=== PATIENT | female | born 1995 | race Caucasian/White ===

== ENCOUNTER 2023-03-16 17:16 | Inpatient (IN) | payer BC ==
[2023-03-16 18:32] LABS: Hematocrit 34.6 % (34.9-44.5); Hemoglobin 11.6 g/dL (12.0-15.5); Mean Corpuscular HGB CONC 33.5 g/dL (32.0-36.0); Mean Corpuscular Hemoglobin 31.2 pg (27.0-33.0); Mean Platelet Volume 12.2 fl (7.4-10.4); Platelet Count 220 10x3/uL (150-450); RBC Distribution Width 13.4 % (11.5-14.5); Red Blood Cell (RBC) Count 3.72 10x6/uL (3.90-5.03); White Blood Cell (WBC) Count 13.5 10x3/uL (3.5-10.5)
[2023-03-16] MEDS ORDERED: fentaNYL/Ropivacaine Epidural 100 ML ONE (19:04)
[2023-03-16 19:07] LABS: Syphilis Antibody Nonreactive (Nonreactive); Syphilis Antibody Index 0.06 S/CO (<1.00 Non-Reactive)
[2023-03-16 19:08] LABS: HBSAg Index 0.17 S/CO (0-0.99); Hep B Surf Ag - L&D Non-Reactive S/CO (NonReactive)
[2023-03-16 19:09] VITALS: BMI 34.0
[2023-03-16] MEDS ORDERED: Carboprost 250 MCG/ML AMP IM PRN (21:45)
[2023-03-16] MEDS ORDERED: Lactated Ringer's 1,000 ML IV SCH (21:45)
[2023-03-16] MEDS ORDERED: Misoprostol 200 MCG TAB RC PRN (21:45)
[2023-03-16] MEDS ORDERED: Ondansetron PF 4 MG/2 ML Vial IVP PRN (21:45)
[2023-03-16] MEDS ORDERED: Acetaminophen 500 MG TAB PO PRN (21:45)
[2023-03-16] MEDS ORDERED: Oxytocin 30 units/NS 500 ML 500 ML IV SCH (21:45)
[2023-03-16] MEDS ORDERED: Lidocaine 1% (PF) 30 ML VIAL SC PRN (21:45)
[2023-03-16] MEDS ORDERED: Ibuprofen 800 MG TAB PO PRN (21:45)
[2023-03-16] MEDS ORDERED: Oxytocin 30 units/NS 500 ML 500 ML IVPB SCH (21:45)
[2023-03-16] MEDS ORDERED: hydrALAZINE 20 MG/ML VIAL SLOW IVP PRN (21:45)
[2023-03-16] MEDS ORDERED: Methylergonovine 0.2 MG/ML VIAL IM PRN (21:45)
[2023-03-16] MEDS ORDERED: Diphenoxylate HCl/Atropine Tablet PO PRN ×2 (21:45)
[2023-03-16] MEDS ORDERED: Promethazine HCl 25 MG/ML VIAL IM PRN ×2 (21:45→22:52)
[2023-03-16] MEDS: Lactated Ringer's 1,000 ML IV SCH (21:50)
[2023-03-16] MEDS ORDERED: Naloxone HCl 0.4 mg/ml Vial IVP PRN ×2 (22:52)
[2023-03-16] MEDS ORDERED: Moisturizing Cream (Eucerin) 113 GM JAR TOP PRN (22:52)
[2023-03-16] MEDS ORDERED: diphenhydrAMINE 50 MG/ML VIAL IVP PRN (22:52)
[2023-03-16] MEDS ORDERED: Lactated Ringer's 500 ML IV PRN (22:52)
[2023-03-16] MEDS ORDERED: Acetaminophen 325 MG TAB PO PRN (22:52)
[2023-03-16] MEDS ORDERED: ePHEDrine Sulfate 50 MG/10 ML VIAL SLOW IVP PRN (22:52)
[2023-03-16] MEDS ORDERED: Communication Order-Pharmacy FS SCH (23:00)
[2023-03-16] MEDS ORDERED: fentaNYL 2 mcg/Ropivacaine 0.2% Epidural 100 ML CADD EPIDURAL SCH (23:00)
[2023-03-16] MEDS ORDERED: Calcium Carbonate 500 MG ChewTAB PO SCH (23:45)
[2023-03-17] MEDS: Ondansetron PF 4 MG/2 ML Vial IVP PRN ×2 (00:42→07:31)
[2023-03-17] MEDS: Lactated Ringer's 1,000 ML IV SCH ×2 (02:11→15:35)
[2023-03-17] MEDS ORDERED: Ondansetron PF 4 MG/2 ML Vial ONE (07:24)
[2023-03-17] MEDS ORDERED: Ondansetron PF 4 MG/2 ML Vial IVP PRN (10:40)
[2023-03-17] MEDS ORDERED: Bisacodyl 10 MG SUPP PR PRN (15:30)
[2023-03-17] MEDS ORDERED: diphenhydrAMINE 25 MG CAP PO PRN (15:30)
[2023-03-17] MEDS ORDERED: traMADol HCl 50 MG TAB PO PRN ×2 (15:30)
[2023-03-17] MEDS ORDERED: Lanolin Ointment 7 GM TUBE TOP PRN (15:30)
[2023-03-17] MEDS ORDERED: Preparation H Ointment 28 GM TUBE PR PRN (15:30)
[2023-03-17] MEDS ORDERED: Milk Of Magnesia 30 ML UDCUP PO PRN (15:30)
[2023-03-17] MEDS ORDERED: hydrALAZINE 20 MG/ML VIAL SLOW IVP PRN (15:30)
[2023-03-17] MEDS ORDERED: Boostrix 0.5 ML (Tdap) VIAL (>/=7 yrs of age) IM ONE (15:30)
[2023-03-17] MEDS: Ibuprofen 800 MG TAB PO SCH ×2 (16:28→20:35)
[2023-03-17] MEDS ORDERED: Ferrous Sulfate 325 MG TAB PO SCH (17:00)
[2023-03-17] MEDS: Docusate 100 MG CAP PO SCH (20:41)
[2023-03-18] MEDS: Ibuprofen 800 MG TAB PO SCH ×3 (02:02→14:49)
[2023-03-18] MEDS ORDERED: Prenatal Vitamin 1 TAB PO SCH (09:00)
[2023-03-18] MEDS: Docusate 100 MG CAP PO SCH (10:28)
[2023-03-18 11:42] VITALS: BP 112/52; TEMP 97.9
[2023-03-18] MEDS ORDERED: Bupivacaine 0.25% HCL 30 ML VIAL ONE (14:00)
== END 2023-03-18 16:25 | disposition home or self-care (01) | DRG 807 ==
LOC: CSHLD/OP 17:16 → CSHLD 18:02 → UNDODISIN 20:05 → CSHPP 03-17 15:10
PROVIDERS: ADMIT Obstetrics & Gynecology; ATTEND Obstetrics & Gynecology
PROC: 10E0XZZ Delivery of Products of Conception, External Approach (ICD-10-PCS; principal; 2023-03-17)
PROC: 3E033XZ Introduction of Vasopressor into Peripheral Vein, Percutaneous Approach (ICD-10-PCS; 2023-03-17)
DX: O70.1 Second degree perineal laceration during delivery (principal); Z37.0 Single live birth; Z3A.39 39 weeks gestation of pregnancy
CPT/HCPCS: 36415; 51702; 85027; 86780; 86850; 86900; 86901; 87340; 99285; J2405; J2590; J7120; S0020